=== PATIENT | female | born 1990 | race Asian ===

== ENCOUNTER 2016-10-14 19:03 | Emergency (ER) | payer SELFPAY ==
[~2016-10-14] VITALS: Ht 160 cm; Wt 63.5 kg
[2016-10-14 19:05] VITALS: BP 106/67
--- NOTE | 2016-10-14 19:24 | Emergency Room Report ---
History of Present Illness General Chief Complaint: Alcohol Intoxication Source: Patient, EMS Present Illness HPI 26-year-old female in no significant past medical history presenting with alcohol intoxication. EMS states that patient was found sleeping on bench at the [facility]. Patient did not have any friends or family with her. Patient AO x3 however intoxicated states that she drank a lot of alcohol earlier today. Currently denying any headache, nausea, vomiting, chest pain, or shortness of breath. Allergies: Coded Allergies: No Known Allergies (Unverified , 10/14/16) Patient History Past Medical History: none Past Surgical History: none Pertinent Family History: none Social History: Reports: alcohol use Last Menstrual Period: unk Nursing Documentation-PMH Past Medical History: No Stated History Review of Systems All Other Systems: negative except mentioned in HPI Physical Exam Vital Signs Date Time Temp Pulse Resp B/P (MAP) Pulse Ox O2 Delivery O2 Flow Rate FiO2 10/14/16 18:56 98.4 67 18 106/67 98 Sp02 EP Interpretation: reviewed, normal General Appearance: alert, other - Young female conversing however is intoxicated Head: normocephalic, atraumatic Eyes: bilateral eye normal inspection, bilateral eye PERRL, bilateral eye EOMI ENT: normal ENT inspection, normal pharynx, normal voice, moist mucus membranes Neck: normal inspection, full range of motion, supple Respiratory: normal inspection, lungs clear, normal breath sounds, no respiratory distress, no retraction, no wheezing, speaking full sentences, chest symmetrical Cardiovascular #1: normal inspection, regular rate, rhythm, normal capillary refill Gastrointestinal: normal inspection, non tender, soft, non-distended, no guarding Musculoskeletal: normal inspection, back normal, normal range of motion, non- tender Neurologic: alert, oriented x3, responsive, motor strength/tone normal, sensory intact, speech normal, other - Wobbly gait Psychiatric: other - Intoxicated Skin: normal inspection, normal color, no rash, warm/dry, well hydrated, normal turgor Medical Decision Making Diagnostic Impression: Primary Impression: Acute alcoholic intoxication ER Course 26 yo F with alc intoxication no trauma noted DDX: alc intox Plan: Obtain labs, IVF ER course: Patient has remained stable during ED stay. patient refused labs but tolerating PO Slept, now sober, ambulating in ED without difficulty Disposition: Patient is to be discharged to home. Patient is instructed to follow up with their primary care doctor within 5 days. Please note that this Emergency Department Report was dictated using [employer] of quality control technology software, occasionally this can lead to erroneous entry secondary to interpretation by the dictation equipment Last Vital Signs Date Time Temp Pulse Resp B/P (MAP) Pulse Ox O2 Delivery O2 Flow Rate FiO2 10/14/16 18:56 98.4 67 18 106/67 98 Disposition: HOME, SELF-CARE Condition: Improved Aster Mckinney M.D. Oct 14, 2016 19:24
[2016-10-14 21:20] VITALS: BP 111/68
[2016-10-14 22:37] LABS: BASOPHILS % (AUTO) 0.5 % (0.0-2.0); EOSINOPHILS % (AUTO) 0.2 % (0.0-3.0); LYMPHOCYTES % (AUTO) 15.6 % (20.0-45.0); MEAN CORPUSCULAR HEMOGLOBIN 20.7 PG (27.0-31.0); MEAN CORPUSCULAR VOLUME 67 FL (80-99); MEAN PLATELET VOLUME 9.2 FL (6.5-10.1); MONOCYTES % (AUTO) 2.5 % (1.0-10.0); NEUTROPHILS % (AUTO) 81.2 % (45.0-75.0); PLATELET COUNT 264 K/UL (150-450); RED BLOOD COUNT 5.53 M/UL (4.20-5.40); RED CELL DISTRIBUTION WIDTH 14.5 % (11.6-14.8); WHITE BLOOD COUNT 11.4 K/UL (4.8-10.8)
[2016-10-14 22:54] VITALS: BP 108/66
[2016-10-14 23:00] LABS: ALANINE AMINOTRANSFERASE 10 U/L (3-33); ALBUMIN/GLOBULIN RATIO 1.3 (1.0-2.7); ALCOHOL 162 mg/dL; ANION GAP 15 (5-15); ASPARTATE AMINO TRANSFERASE 16 U/L (5-40); CALCIUM 8.5 mg/dL (8.6-10.2); CARBON DIOXIDE 22 mEQ/L (20-30); CHLORIDE 100 mEQ/L (98-107); CREATININE 0.5 mg/dL (0.5-0.9); GLOMERULAR FILTRATION RATE > 60 mL/min (>60); HEMOLYSIS 0; SODIUM 137 mEQ/L (135-145); TOTAL PROTEIN 7.8 g/dL (6.6-8.7)
[2016-10-15 05:00] VITALS: BP 106/67
== END 2016-10-14 22:54 | disposition home or self-care (01) ==
LOC: EDBD 19:03 → EMR 19:15
DX: F10.129 Alcohol abuse with intoxication, unspecified (principal)
CPT/HCPCS: 36415; 80053; 85025; 96374; 99284; G0480; 80329